=== PATIENT | male | born 1955 | race Caucasian/White ===

== ENCOUNTER 2023-02-19 12:41 | Emergency (ER) | payer MEDICARE, OTHER ==
[2023-02-19] MEDS ORDERED: fentaNYL 100 MCG/2 ML SDV IVPUSH ONE (13:24)
[2023-02-19] MEDS ORDERED: ceFAZolin 2 GM in Sodium Chloride 0.9% 50 ML IV ONE (13:25)
[2023-02-19] MEDS ORDERED: Acetaminophen 325 MG Tab PO ONE (13:25)
== END 2023-02-19 14:02 ==
LOC: JD.ED 12:41
DX: K43.0 Incisional hernia with obstruction, without gangrene (principal); I10 Essential (primary) hypertension
CPT/HCPCS: 96374; 96376; 99284; A9270; J3010

== ENCOUNTER 2023-02-19 13:29 | Inpatient (IN) | payer MEDICARE, OTHER ==
[2023-02-19] MEDS ORDERED: Lidocaine 1% 8 ML ONE (13:51)
[2023-02-19] MEDS ORDERED: Midazolam 1 MG/ML 2 ML SDV ONE (13:52)
[2023-02-19] MEDS ORDERED: fentaNYL 250 MCG/5 ML SDV ONE (13:52)
[2023-02-19] MEDS ORDERED: Propofol 200 MG/20 ML SDV ONE (13:52)
[2023-02-19] MEDS ORDERED: ceFAZolin 2 GM Vial ONE (13:53)
[2023-02-19] MEDS ORDERED: Rocuronium 50 MG/5 ML Vial ONE (14:00)
[2023-02-19] MEDS ORDERED: Sodium Chloride 0.9% 1,000 ML IV ONE (14:00)
[2023-02-19] MEDS ORDERED: Neostigmine Methylsulfate 10 MG/10 ML MDV ONE (14:01)
[2023-02-19] MEDS ORDERED: Ondansetron 4 MG/2 ML SDV ONE (14:03)
[2023-02-19] MEDS ORDERED: Succinylcholine 200 MG/10 ML MDV ONE (14:04)
[2023-02-19] MEDS: Bupivacaine 0.5%/EPINEPHrine 1:200,000 50 ML MDV ONE ×2 (14:26→15:20)
[2023-02-19] MEDS ORDERED: Metoprolol Tartrate 5 MG/5 ML SDV ONE (14:29)
[2023-02-19] MEDS: Lidocaine 1% 30 ML SDV ONE ×2 (14:47→15:20)
[2023-02-19] MEDS ORDERED: HYDROmorphone 0.5 MG/0.5 ML Syringe IVPUSH PRN (15:07)
[2023-02-19] MEDS ORDERED: fentaNYL 100 MCG/2 ML SDV IVPUSH PRN (15:07)
[2023-02-19] MEDS ORDERED: Lactated Ringers 1,000 ML ONE (15:11)
[2023-02-19] MEDS ORDERED: Sodium Chloride 0.9% 100 ML ONE (15:11)
[2023-02-19] MEDS ORDERED: Ondansetron 4 MG/2 ML SDV IVPUSH PRN (16:10)
[2023-02-19] MEDS ORDERED: Docusate Sodium 100 MG Cap PO PRN (16:10)
[2023-02-19] MEDS: Acetaminophen 325 MG Tab PO SCH ×2 (16:57→21:59)
[2023-02-19] MEDS: Lactated Ringers 1,000 ML IV SCH (17:01)
[2023-02-19] MEDS: oxyCODONE 5 MG Tab PO PRN (20:19)
[2023-02-19] MEDS ORDERED: Enoxaparin 40 MG/0.4 ML Syringe SUBCUT ONE (21:00)
[2023-02-19] MEDS: ceFAZolin 2 GM in Sodium Chloride 0.9% 50 ML IV SCH (22:00)
[2023-02-19] MEDS: HYDROmorphone 0.5 MG/0.5 ML Syringe IVPUSH PRN (22:46)
[2023-02-20] MEDS: Lactated Ringers 1,000 ML IV SCH ×2 (01:48→18:53)
[2023-02-20] MEDS: oxyCODONE 5 MG Tab PO PRN (03:39)
[2023-02-20] MEDS: Acetaminophen 325 MG Tab PO SCH ×4 (03:46→21:19)
[2023-02-20] MEDS: HYDROmorphone 0.5 MG/0.5 ML Syringe IVPUSH PRN (04:47)
[2023-02-20] MEDS: Pantoprazole 40 MG Tab.CR PO SCH (06:04)
[2023-02-20] MEDS: ceFAZolin 2 GM in Sodium Chloride 0.9% 50 ML IV SCH (06:04)
[2023-02-20] MEDS: Metoprolol Succinate 50 MG Tab.ER PO SCH (08:15)
[2023-02-20] MEDS: Hydrochlorothiazide 12.5 MG Cap PO SCH (08:15)
[2023-02-20] MEDS: Aspirin 81 MG Tab.Chew PO SCH (08:20)
[2023-02-20] MEDS ORDERED: Non-Formulary Medication 1 Each (Omeprazole 20 MG Cap.Cr) PO SCH (09:00)
[2023-02-20 16:08] LABS: ANION GAP 10.1 (5-15); BUN/CREATININE RATIO 12.3 (14-18); CREATININE 1.3 mg/dL (0.7-1.3); EST CRCL DRUG DOSING (CG) 56.15 mL/min; MAGNESIUM 2.1 mg/dL (1.8-2.4); POTASSIUM,K 4.1 mEq/L (3.5-5.1)
[2023-02-20] MEDS: Losartan 100 MG Tab PO SCH (18:35)
[2023-02-20] MEDS: Enoxaparin 40 MG/0.4 ML Syringe SUBCUT SCH ×2 (21:15→21:36)
[2023-02-21] MEDS: Acetaminophen 325 MG Tab PO SCH ×3 (03:57→21:04)
[2023-02-21 05:12] LABS: BASOPHILS ABSOLUTE AUTO 0.02 K/mm3 (0.01-0.08); BASOPHILS PERCENT AUTO 0.2 % (0.1-1.2); EOSINOPHILS ABSOLUTE AUTO 0.18 K/mm3 (0.04-0.54); EOSINOPHILS PERCENT AUTO 2.1 (0.8-7.0); HEMATOCRIT 42.4 % (40.1-51.0); LYMPHOCYTES ABSOLUTE AUTO 0.86 K/mm3 (1.32-3.57); LYMPHOCYTES PERCENT AUTO 9.9 % (21.8-53.1); MEAN CORPUSCULAR HEMOGLOBIN 31.9 pg (25.7-32.2); MEAN CORPUSCULAR VOLUME 96.6 fl (79.0-92.2); MEAN PLATELET VOLUME 11.4 fl (9.4-12.3); NEUTROPHILS ABSOLUTE AUTO 6.97 K/mm3 (1.78-5.38); NEUTROPHILS PERCENT AUTO 79.8 % (34.0-67.9); PLATELET COUNT,PLT 145 K/mm3 (163-337); RED BLOOD CELL COUNT 4.39 M/mm3 (4.63-6.08); WHITE BLOOD CELL COUNT,WBC 8.73 K/mm3 (4.23-9.07)
[2023-02-21 05:33] LABS: A/G RATIO 1.1 (1-2); ALBUMIN 3.1 g/dl (3.4-5.0); BILIRUBIN TOTAL 1.1 mg/dL (0.2-1.0); BUN/CREATININE RATIO 11.7 (14-18); CALCIUM 8.9 mg/dL (8.5-10.1); CREATININE 1.2 mg/dL (0.7-1.3); EST CRCL DRUG DOSING (CG) 60.83 mL/min
[2023-02-21] MEDS: Pantoprazole 40 MG Tab.CR PO SCH (06:26)
[2023-02-21] MEDS: Lactated Ringers 1,000 ML IV SCH ×2 (06:45→16:32)
[2023-02-21] MEDS: Losartan 100 MG Tab PO SCH (08:30)
[2023-02-21] MEDS: Hydrochlorothiazide 12.5 MG Cap PO SCH (08:30)
[2023-02-21] MEDS: Aspirin 81 MG Tab.Chew PO SCH (08:30)
[2023-02-21] MEDS: Metoprolol Succinate 50 MG Tab.ER PO SCH (08:30)
[2023-02-21] MEDS: Enoxaparin 40 MG/0.4 ML Syringe SUBCUT SCH (21:06)
[2023-02-22] MEDS: Lactated Ringers 1,000 ML IV SCH ×3 (00:36→17:12)
[2023-02-22] MEDS: Acetaminophen 325 MG Tab PO SCH ×3 (01:00→11:02)
[2023-02-22] MEDS: oxyCODONE 5 MG Tab PO PRN (04:54)
[2023-02-22] MEDS: Pantoprazole 40 MG Tab.CR PO SCH (06:20)
[2023-02-22] MEDS: Metoprolol Succinate 50 MG Tab.ER PO SCH (08:22)
[2023-02-22] MEDS: Aspirin 81 MG Tab.Chew PO SCH (08:24)
[2023-02-22] MEDS: Hydrochlorothiazide 12.5 MG Cap PO SCH (08:24)
[2023-02-22] MEDS: Losartan 100 MG Tab PO SCH (08:25)
[2023-02-22 08:36] LABS: HEPATITIS B SURFACE AG NONREACTIVE (NONREACTIVE)
[2023-02-22] MEDS: Ketorolac 15 MG/ML SDV IVPUSH SCH ×3 (11:39→23:17)
[2023-02-22] MEDS: Enoxaparin 40 MG/0.4 ML Syringe SUBCUT SCH (21:21)
[2023-02-23] MEDS: Lactated Ringers 1,000 ML IV SCH ×2 (00:49→08:51)
[2023-02-23] MEDS: Ketorolac 15 MG/ML SDV IVPUSH SCH ×4 (05:39→22:45)
[2023-02-23] MEDS: Pantoprazole 40 MG Tab.CR PO SCH (06:02)
[2023-02-23] MEDS: Hydrochlorothiazide 12.5 MG Cap PO SCH (08:13)
[2023-02-23] MEDS: Metoprolol Succinate 50 MG Tab.ER PO SCH (08:13)
[2023-02-23] MEDS: Losartan 100 MG Tab PO SCH (08:13)
[2023-02-23] MEDS: Aspirin 81 MG Tab.Chew PO SCH (08:14)
[2023-02-23] MEDS: Enoxaparin 40 MG/0.4 ML Syringe SUBCUT SCH (20:54)
[2023-02-24] MEDS: Ketorolac 15 MG/ML SDV IVPUSH SCH ×4 (04:43→23:00)
[2023-02-24] MEDS: Pantoprazole 40 MG Tab.CR PO SCH ×2 (04:46→06:25)
[2023-02-24] MEDS: Aspirin 81 MG Tab.Chew PO SCH (08:46)
[2023-02-24] MEDS: Losartan 100 MG Tab PO SCH (08:46)
[2023-02-24] MEDS: Hydrochlorothiazide 12.5 MG Cap PO SCH (08:46)
[2023-02-24] MEDS: Metoprolol Succinate 50 MG Tab.ER PO SCH (08:46)
[2023-02-24] MEDS: Enoxaparin 40 MG/0.4 ML Syringe SUBCUT SCH (21:31)
[2023-02-25] MEDS: Ketorolac 15 MG/ML SDV IVPUSH SCH ×3 (05:34→17:34)
[2023-02-25] MEDS: Pantoprazole 40 MG Tab.CR PO SCH (05:34)
[2023-02-25 06:16] LABS: ANION GAP 11.8 (5-15); BUN/CREATININE RATIO 5.5 (14-18); CALCIUM 9.4 mg/dL (8.5-10.1); CREATININE 1.1 mg/dL (0.7-1.3); EST CRCL DRUG DOSING (CG) 66.36 mL/min; POTASSIUM,K 3.8 mEq/L (3.5-5.1)
[2023-02-25] MEDS: Metoprolol Succinate 50 MG Tab.ER PO SCH (08:59)
[2023-02-25] MEDS: Aspirin 81 MG Tab.Chew PO SCH (08:59)
[2023-02-25] MEDS: Losartan 100 MG Tab PO SCH (09:00)
[2023-02-25] MEDS: Hydrochlorothiazide 12.5 MG Cap PO SCH (09:00)
== END 2023-02-25 18:13 | disposition home or self-care (01) | DRG 353 ==
LOC: JD.SDS 13:29 → JD.MS 16:10
PROVIDERS: ADMIT Surgery; ATTEND Surgery
PROC: 0WUF0JZ Supplement Abdominal Wall with Synthetic Substitute, Open Approach (ICD-10-PCS; principal; 2023-02-19)
PROC: 3E0M05Z Introduction of Adhesion Barrier into Peritoneal Cavity, Open Approach (ICD-10-PCS; 2023-02-19)
DX: K43.0 Incisional hernia with obstruction, without gangrene (principal); K55.029 Acute infarction of small intestine, extent unspecified; I10 Essential (primary) hypertension; K56.50 Intestinal adhesions [bands], unspecified as to partial versus complete obstruction; K56.7 Ileus, unspecified; Z79.82 Long term (current) use of aspirin; Z79.899 Other long term (current) drug therapy
CPT/HCPCS: 00832; 36415; 74018; 74018-26; 80048; 80053; 83735; 85025; 86803; 87340; 93005; 94762; 96374; 96376; 99140; 99284-25; A9270-GY; C1781; G0433; J0330; J0690; J1170; J1650; J1885; J2250; J2405; J2704; J2710; J3010; J3490; J7030; J7120

== ENCOUNTER 2023-02-28 11:26 | Emergency (ER) | payer MEDICARE, OTHER | END 2023-02-28 13:25 | disposition home or self-care (01) | LOC: JD.ED 11:26 | DX: Z48.01 Encounter for change or removal of surgical wound dressing (principal); I10 Essential (primary) hypertension; Z79.899 Other long term (current) drug therapy | CPT/HCPCS: 99282; 99283 ==